=== PATIENT | male | born 1980 | race Caucasian/White ===

== ENCOUNTER 2017-01-17 18:56 | Emergency (ER) | payer BC, OTHER ==
[2017-01-17] MEDS ORDERED: ONDANSETRON 4 MG/2 ML VIAL IVP STA (19:04)
--- NOTE | 2017-01-17 19:24 | ED ---
Overdose HPI - General Chief Complaint: Overdose Stated Complaint: Overdose Time Seen by Provider: 01/17/17 19:00 Source: patient, EMS, RN notes reviewed Mode of arrival: EMS Limitations: no limitations - History of Present Illness Initial Comments: 36-year-old male presents to the emergency department via EMS with complaint of overdose. Patient states he relapsed on heroin today. Patient states that he injected his left forearm. Patient was found's in his truck. Patient was given 2 of Narcan IV. Patient states he just feels nauseated this time. Patient denies any suicidal or homicidal ideations. Denies any fever or chills. Denies any chest or shortness of breath. - Related Data Home Medications Medication Instructions Recorded Confirmed No Known Home Medications [No 01/17/17 01/17/17 Known Home Medications] Allergies Allergy/AdvReac Type Severity Reaction Status Date / Time No Known Allergies Allergy Verified 01/17/17 19:44 Review of Systems ROS Statement: Those systems with pertinent positive or pertinent negative responses have been documented in the HPI. ROS Other: All systems not noted in ROS Statement are negative. Past Medical History Additional Past Medical History / Comment(s): kidney stones History of Any Multi-Drug Resistant Organisms: None Reported Past Surgical History: No Surgical Hx Reported Past Psychological History: No Psychological Hx Reported Smoking Status: Current every day smoker Past Alcohol Use History: Occasional Past Drug Use History: Heroin General Exam Limitations: no limitations General appearance: alert, in no apparent distress Head exam: Present: atraumatic, normocephalic, normal inspection Eye exam: Present: normal appearance, PERRL, EOMI. Absent: scleral icterus, conjunctival injection, periorbital swelling ENT exam: Present: normal exam, normal oropharynx, mucous membranes moist Neck exam: Present: normal inspection. Absent: tenderness, meningismus, lymphadenopathy Respiratory exam: Present: normal lung sounds bilaterally. Absent: respiratory distress, wheezes, rales, rhonchi, stridor Cardiovascular Exam: Present: normal rhythm, tachycardia, normal heart sounds. Absent: systolic murmur, diastolic murmur, rubs, gallop, clicks GI/Abdominal exam: Present: soft, normal bowel sounds. Absent: distended, tenderness, guarding, rebound, rigid Back exam: Present: normal inspection Psychiatric exam: Present: normal affect, normal mood Course Vital Signs 01/17/17 01/17/17 18:57 19:03 Temperature 97.9 F Pulse Rate 108 H Respiratory 17 Rate Blood Pressure 145/90 O2 Sat by Pulse 98 Oximetry - Reevaluation(s) Reevaluation #1: 01/17/17 20:04 Patient was reevaluated. Patient received Narcan over 90 minutes ago. Patient is awake alert and 3. Patient will be discharged Medical Decision Making - Medical Decision Making 36-year-old male present emergency department for heroin overdose. Patient was given Narcan and which responded to. Patient awake and alert and orientated. Patient will be discharged Disposition Clinical Impression: Heroin overdose Disposition: HOME SELF-CARE Condition: Stable Instructions: Opioid Overdose (ED) Additional Instructions: Please return to the Emergency Department if symptoms worsen or any other concerns. Referrals: None,Stated [Primary Care Provider] - 1-2 days Time of Disposition: 20:05
[2017-01-17 21:07] VITALS: BP 117/68; PULSE 85; RESP 20; TEMP 98.7
== END 2017-01-17 21:07 | disposition home or self-care (01) ==
LOC: EC 18:56
DX: T40.1X1A Poisoning by heroin, accidental (unintentional), initial encounter (principal); R11.0 Nausea; F17.200 Nicotine dependence, unspecified, uncomplicated
CPT/HCPCS: 99284; 96374; J2405

== ENCOUNTER 2017-03-13 15:15 | Emergency (ER) | payer BC, OTHER ==
[2017-03-13 15:52] VITALS: RESP 18
--- NOTE | 2017-03-13 16:07 | ED ---
General Adult HPI - General Chief complaint: Extremity Injury, Lower Stated complaint: Leg Pain Time Seen by Provider: 03/13/17 15:39 Source: patient, RN notes reviewed Mode of arrival: ambulatory Limitations: no limitations - History of Present Illness Initial comments: Patient is 36-year-old male who presents emergency room today with a chief complaint of pain and some swelling to left lower extremity. He does admit that it started approximately a week ago. Denies any injury or trauma. States seems to be worse in the morning when he first gets up and as the day goes on seems to improve. He does admit that the pain is worse to the top of the left calf and behind the left knee. He denies any other complaints or symptoms. Patient denies any recent fever, chills, shortness of breath, chest pain, back pain, abdominal pain, nausea or vomiting, numbness or tingling, dysuria or hematuria, constipation or diarrhea, headaches or visual changes, or any other complaints. - Related Data Previous Rx's Medication Instructions Recorded Ibuprofen [Motrin] 600 mg PO Q6HR PRN #40 day 03/13/17 Allergies Allergy/AdvReac Type Severity Reaction Status Date / Time No Known Allergies Allergy Verified 03/13/17 15:48 Review of Systems ROS Statement: Those systems with pertinent positive or pertinent negative responses have been documented in the HPI. ROS Other: All systems not noted in ROS Statement are negative. Past Medical History Additional Past Medical History / Comment(s): kidney stones History of Any Multi-Drug Resistant Organisms: None Reported Past Surgical History: No Surgical Hx Reported Past Psychological History: No Psychological Hx Reported Smoking Status: Current every day smoker Past Alcohol Use History: Occasional Past Drug Use History: Heroin, Opiates, Prescription Drug Abuse General Exam - General Exam Comments Initial Comments: General: The patient is awake and alert, in no distress, and does not appear acutely ill. Neck: The neck is supple, there is no tenderness or JVD. Cardiovascular: There is a regular rate and rhythm. No murmur, rub or gallop is appreciated. Respiratory: Lungs are clear to auscultation, respirations are non-labored, breath sounds are equal. No wheezes, stridor, rales, or rhonchi. Musculoskeletal: Patient does have some mild swelling to left lower extremity when compared bilaterally. His local tender to the popliteal and upper calf area. Sensations are intact pulses equal bilaterally 2+. Strength 5/5 bilaterally. Neurological: A&O x 3. CN II-XII intact, There are no obvious motor or sensory deficits. Coordination appears grossly intact. Speech is normal. Skin: Skin is warm and dry and no rashes or lesions are noted. Psychiatric: Normal mood and affect. Limitations: no limitations Course Vital Signs 03/13/17 15:47 Temperature 97.9 F Pulse Rate 87 Respiratory 18 Rate Blood Pressure 123/73 O2 Sat by Pulse 98 Oximetry Medical Decision Making - Medical Decision Making Ultrasound negative for any evidence of DVT. There is no sign of infection. Patient advised most likely a pulled strength muscle. Advised follow-up with orthopedics. Advised return here to the emergency room if any symptoms increase or worsen in the meantime use ibuprofen for pain. Patient states her stated and is in agreement. Disposition Clinical Impression: Left leg pain Disposition: HOME SELF-CARE Condition: Good Instructions: Knee Sprain (ED) Additional Instructions: Please use medication as discussed. Please follow-up with orthopedic/family doctor in the next 2 days of symptoms have not improved. Please return to emergency room if the symptoms increase or worsen or for any other concerns. Prescriptions: Ibuprofen [Motrin] 600 mg PO Q6HR PRN #40 day PRN Reason: Pain Referrals: None,Stated [Primary Care Provider] - 1-2 days Artur Fry MD [Medical Doctor] - 1-2 days Time of Disposition: 17:15
--- NOTE | 2017-03-13 16:59 | US ---
EXAMINATION TYPE: US venous doppler duplex LE LT DATE OF EXAM: 03/13/2017 4:46 PM COMPARISON: NONE CLINICAL HISTORY: 36-year-old male Pain. SIDE PERFORMED: Left TECHNIQUE: The lower extremity deep venous system is examined utilizing real time linear array sonog bibiana with graded compression, doppler sonography and color-flow sonography. FINDINGS: VESSELS IMAGED: External Iliac Vein (EIV) Common Femoral Vein Deep Femoral Vein Greater Saphenous Vein * Femoral Vein Popliteal Vein Small Saphenous Vein * Proximal Calf Veins (* superficial vessels) Left Leg: Negative for DVT IMPRESSION: No evidence for DVT within the left lower extremity imaged from the groin to the upper calf.
[2017-03-13 17:17] VITALS: BP 130/75; PULSE 70; TEMP 98.7
== END 2017-03-13 17:17 | disposition home or self-care (01) ==
LOC: EC 15:15
DX: M79.605 Pain in left leg (principal); M79.89 Other specified soft tissue disorders; F17.200 Nicotine dependence, unspecified, uncomplicated
CPT/HCPCS: 99283

== ENCOUNTER 2019-11-01 09:43 | Observation (INO) | payer OTHER ==
[2019-11-01] MEDS ORDERED: ACETAMINOPHEN TAB 325 MG TAB PO PRN (11:25)
[2019-11-01] MEDS ORDERED: NALOXONE 0.4 MG/ML 1 ML VIAL IV PRN (11:25)
[2019-11-01] MEDS ORDERED: IBUPROFEN 400 MG TAB PO PRN (11:25)
[2019-11-01] MEDS ORDERED: VANCOMYCIN IV PER PHARMACY 1 EACH MISC MISCELLANE PRN (11:31)
--- NOTE | 2019-11-01 11:31 | P.PN ---
Progress Note - Text Patient's transfer from the Hospital for Foot Drop and Neurological Evaluation. Patient Doesn't Have Any Trauma, Has Weakness in the Dorsiflexion of the Left Foot along with Loss of Proprioception Loss of Pain and Temperature Sensations. Patient Did Have a Low-Grade Fever of 100.2 Because of Which Will Obtain a Blood Culture Patient Was Started on Vancomycin MRI of the Lumbar Spine Will Be Ordered to Rule Out Discitis.
--- NOTE | 2019-11-01 12:12 | XR ---
EXAMINATION TYPE: XR chest 2V DATE OF EXAM: 11/01/2019 COMPARISON: 01/03/2015 TECHNIQUE: PA and lateral views submitted. HISTORY: Cough possible pneumonia FINDINGS: The lungs are clear and there is no pneumothorax, pleural effusion, or focal pneumonia. Heart size normal with no overt failure. Biapical pleural thickening. IMPRESSION: 1. No acute process.
--- NOTE | 2019-11-01 14:38 | MR ---
EXAMINATION TYPE: MR lumbar spine wo/w con DATE OF EXAM: 11/01/2019 COMPARISON: HISTORY: Foot drop, weakness in dorsiflexion left foot with loss of proprioception, pain and temperat ure sensations R/O diskitis TECHNIQUE: Multiplanar, multisequence images of the lumbar spine were acquired utilizing 7.5 mL intravenous Gada vist gadolinium contrast. L1-L2: Normal disc appearance without desiccation. No herniation, protrusion or disc bulging. No ca nal stenosis is present. Foramina are patent bilaterally. L2-L3: No evident foraminal encroachment. Minimal posterior disc bulge causes only slight anterior ma ss effect on the thecal sac. L3-L4: Normal disc appearance without desiccation. No herniation, protrusion or disc bulging. No ca nal stenosis is present. Foramina are patent bilaterally. L4-L5: Normal disc appearance without desiccation. No herniation, protrusion or disc bulging. No ca nal stenosis is present. Foramina are patent bilaterally. L5-S1: Normal disc appearance without desiccation. No herniation, protrusion or disc bulging. No ca nal stenosis is present. Foramina are patent bilaterally. Lumbar segments are intact. No paraspinal masses are identified. Conus medullaris has a normal appe arance. Lumbar vertebral bodies show preserved height and alignment. No abnormal enhancement followin g contrast administration. Loss of disc height signal present at L2-3. IMPRESSION: Mild degenerative disc disease L2-3.
[2019-11-01 15:13] LABS: African American GFR (CKD) >90 (>60 ml/min/1.73 sqM); Non-African American GFR(CKD) >90 (>60 ml/min/1.73 sqM)
[2019-11-01] MEDS ORDERED: VANCOMYCIN 1,250 MG in SODIUM CHLORIDE 0.9% 250 ML IVPB ONE (15:30)
[2019-11-01 17:36] VITALS: RESP 16
[2019-11-01] MEDS: VANCOMYCIN 1,250 MG in SODIUM CHLORIDE 0.9% 250 ML IVPB SCH (23:07)
[2019-11-02 07:19] LABS: Basophils % (A) 0 %; Eosinophils % (A) 0 %; HCT 37.9 % (39.0-53.0); Lymphocytes # (A) 1.4 k/uL (1.0-4.8); Lymphocytes % (A) 25 %; MCH 30.8 pg (25.0-35.0); MCHC 34.2 g/dL (31.0-37.0); MCV 90.1 fL (80.0-100.0); Mean Platelet Volume 7.8; Monocytes # (A) 0.4 k/uL (0-1.0); Monocytes % (A) 7 %; Neutrophils # (A) 3.7 k/uL (1.3-7.7); Neutrophils % (A) 66 %; Platelet Count 199 k/uL (150-450); RBC 4.21 m/uL (4.30-5.90); RDW 12.2 % (11.5-15.5); WBC 5.6 k/uL (3.8-10.6)
[2019-11-02 07:41] LABS: ALT 39 U/L (4-49); AST 114 U/L (17-59); African American GFR (CKD) >90 (>60 ml/min/1.73 sqM); Albumin 3.4 g/dL (3.5-5.0); Alkaline Phosphatase 51 U/L (38-126); Anion Gap 7 mmol/L; Blood Urea Nitrogen 9 mg/dL (9-20); Calcium 8.3 mg/dL (8.4-10.2); Carbon Dioxide 23 mmol/L (22-30); Chloride 107 mmol/L (98-107); Glucose 78 mg/dL (74-99); Non-African American GFR(CKD) >90 (>60 ml/min/1.73 sqM); Potassium 3.9 mmol/L (3.5-5.1); Sodium 137 mmol/L (137-145); Total Bilirubin 0.6 mg/dL (0.2-1.3); Total Protein 6.1 g/dL (6.3-8.2)
[2019-11-02 08:31] VITALS: BP 106/72; PULSE 95; TEMP 98.2
[2019-11-02] MEDS: VANCOMYCIN 1,250 MG in SODIUM CHLORIDE 0.9% 250 ML IVPB SCH (08:31)
--- NOTE | 2019-11-02 12:44 | CONS ---
CONSULTATION DATE OF DICTATION: 11/02/2019. HISTORY OF PRESENT ILLNESS: Mukund Cantu who is a 39-year-old right-handed white male who presented to [facility] as a transfer from an outside hospital for evaluation of an acute left footdrop, which was present upon waking and low-grade temperature at the outside facility of 100.2. The patient states that yesterday morning he fell asleep on the couch and woke up after 3-4 hours with his left foot feeling numb and inability to dorsiflex the left foot. The symptoms were not present prior to the patient falling asleep. He states the numbness affected the entire left foot and posterior lateral calf and was able to plantar flex the foot. The right lower extremity was asymptomatic and he has never had similar symptoms in the past. He had no weakness or numbness involving the left upper extremity or left side of the face. This morning, the patient has noted significant improvement in the symptoms, stating he is now able to dorsiflex the foot and the numbness has improved, although not entirely back to baseline. When the symptoms developed, the patient had no associated back pain or left lower extremity discomfort. He denied recent trauma. He had a low-grade temperature at the outside emergency room, although states at home he had no fever, chills, or sweats and has been afebrile since being transferred to this facility. He has no previous history of stroke or seizure. Due to the patient's previous history of IV drug abuse, concern was raised regarding diskitis or epidural abscess and as a result, MRI of the lumbar spine with and without contrast which was completed, which was unrevealing. ALLERGIES: No known drug allergies. HOME MEDICATIONS: None. The patient states he does occasionally use over the counter Kratom. PAST MEDICAL HISTORY: Hepatitis C, opiate/IV heroin abuse and tobacco abuse. PAST SURGICAL HISTORY: Denies. SOCIAL HISTORY: The patient smokes a half pack per day and smoked over the past 20 years. He occasionally consumes alcohol. He smokes marijuana occasionally and has a previous history of opiate and IV heroin abuse, although states he has not used heroin over the last 6 months. He has been through a detox program. He denies sexually transmitted diseases. He is single with 2 children and lives in apartment by himself. He is not been using any assistive devices to ambulate at home. 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 FAMILY HISTORY: Patient's parents are alive. Mother is in good health and father has had a history of coronary artery disease and pacemaker placed. There is no family history of neuropathy, myopathy, or other neurologic/neuromuscular disorders. REVIEW OF SYSTEMS: Fourteen systems are reviewed and no additional points identified. The review of systems documented in history and physical.. PHYSICAL EXAM: Upon arrival to the patient's room, he was lying in bed, receptive to the examiner. Affect is normal. He is an accurate historian. Appears of stated age. He is of thin build. VITAL SIGNS: Blood pressure is 106/72 with a pulse of 95, respiratory rate 16, temperature is 98.2, weight is 76 kg on a 6 foot 1 inch frame. SKIN/EXTREMITIES: Normal. Straight leg raising is negative. HEAD, NECK: No tenderness or signs of trauma. Neck is supple without meningeal signs. Arteries are nontender and without bruits. HEART: Regular rhythm, higher cortical function. MENTAL STATUS: Patient was alert, oriented to time, place, and person. He was able to name, repeat and read. There was no right to left disorientation, finger-nose extinction to double simultaneous stimulation or dysarthria. Pharynx is well. Pupils are equal and reactive to light symmetrically. No afferent pupillary defect. Visual walter are intact to confrontation. No ptosis/extraocular movements full. No nystagmus. Pinprick to light touch intact in all 3 divisions. Motor 5 intact. No facial asymmetry or weakness. Acuity intact to finger rub. Palate gabrielle in the midline. Trapezius strength intact. Tongue protruded midline without fasciculation or atrophy. Motor examination, there is no pronator drift. Normal bulk and tone are normal, which was closed with no involuntary movements noted. Strength is 5/5 involving the bilateral upper and right lower extremities. The left lower extremity strength is listed on a 0-5 MRC scale, right side listed first. Iliopsoas 5, quadriceps 5, hamstrings 5, ankle dorsiflexors 5- , ankle plantar flexors 5, invertors 5, evertors 5. SENSORY: Patient reports diminution to pinprick and light touch predominantly over the top of the left foot as compared to the right. The remainder of the upper/lower extremities were symmetric. There is no is no asymmetry across the chest or sensory level. Reflexes right side listed first biceps 1, 1/. Brachioradials 1, 1, chest of 1, 1, patella 2, 2, ankle 2, 1. Plantar responses flexor bilaterally. Cobb's is absent. Coordination pkhkab-[id number], iikd-dj-[id number] movements are intact. Rapid movements are symmetric with finger and foot tapping. Gait and station. The patient was able rise from a seated position without difficulty. He ambulated with a mildly broad-based gait with equal arm swing. He was able to heel-toe and tandem walk. Romberg is negative. At the bedside, I had the patient hold on to a nearby counter and perform ankle plantar flexion with each foot individually and on 5 repetitions did this without reduction in amplitude on either side. DIAGNOSTIC TESTING: Patient had an MRI of lumbar spine completed with without contrast, which demonstrated mild degenerative disc disease at the L2-3 level, but was otherwise unrevealing, in particular, there was no evidence of significant disc herniation, canal stenosis and the neural foramen were patent bilaterally. No abnormal enhancement was seen. LAB WORK: Demonstrates a white blood count of 5.6, hemoglobin of 13.0, platelet count 199. Sodium 137 and potassium 3.9, BUN 9 with a creatinine of 0.68, calcium 8.3, ALT 39, AST 114. IMPRESSION: 1. Left foot drop noted upon awakening yesterday morning, likely secondary to a left peroneal mononeuropathy across the fibular segment as the patient had fallen asleep on his couch. This has significantly improved within 1 day. The patient currently has near-complete left ankle dorsiflexion strength and is able to heel walk on the left. 2. Mildly reduced left Achilles reflex, it is unclear if this is old or new, although patient has no weakness in the left S1 distribution, in particular, is able to ankle plantar flex without difficulty. 3. Low-grade fever at an outside facility. The patient has been afebrile during this hospitalization, denies chills or sweats, has no white blood cell count elevation, and MRI of the lumbar spine was negative for enhancing lesions. 4. History of hepatitis C, tobacco abuse, and opiate/heroin abuse. RECOMMENDATION: 1. I reassured the patient his neurologic examination is well maintained. 2. Recommend avoiding leg crossing. 3. MRI of the lumbar spine with and without contrast was unrevealing, in particular, no enhancing lesions were identified nor was there significant disk herniation, canal stenosis or neural foraminal narrowing. 4. Would pursue an EMG on an outpatient basis if the symptoms persist. 5. Please feel free to contact me if there are further questions from a neurologic standpoint. MMODL / IJN: [id number] / MTDD
--- NOTE | 2019-11-02 12:46 | P.HPIM ---
History of Present Illness 39-year-old pleasant male left presented to [facility] because of weakness in the left leg patient has a weakness in the dorsiflexion of the left foot. No other weakness patient has loss of sensation of all sensations as well as proprioception. Patient reflexes in the left knee is within normal limits and the 2/5. Patient had a low-grade fever in the other hospital with only 1 episode of 100.2 because of which there is a concern of discitis. Patient was transferred here for evaluation by neurology and MRI. Patient already had MRI of the lumbar spine which is transient discitis. Patient had only 1 episode of fever doesn't have any leukocytosis no other signs or symptoms of sepsis. Patient had mildly related liver enzymes secondary to chronic hep C. Since patient had a low-grade fever 1 episode without any evidence of any sepsis patient will not require antibiotics patient was evaluated by neurology and cleared for discharge. Patient probably has local nerve injury when his sleep his weakness significantly improved and patient is able to walk normally. If he can use to have weakness patient will follow with outpatient physical therapy. He continues to have weakness patient will follow with urology as an outpatient for the EMG. Patient doesn't have any evidence of, denied any trauma patient do esn't have any evidence of compartment syndrome Review of Systems REVIEW OF SYSTEMS: CONSTITUTIONAL: No fever, no malaise, no fatigue. HEENT: No recent visual problems or hearing problems. Denied any sore throat. CARDIOVASCULAR: No chest pain, orthopnea, PND, no palpitations, no syncope. PULMONARY: No shortness of breath, no cough, no hemoptysis. GASTROINTESTINAL: No diarrhea, no nausea, no vomiting, no abdominal pain. NEUROLOGICAL: As mentioned in HPI HEMATOLOGICAL: Denies any bleeding or petechiae. GENITOURINARY: Denies any burning micturition, frequency, or urgency. MUSCULOSKELETAL/RHEUMATOLOGICAL: Denies any joint pain, swelling, or any muscle pain. ENDOCRINE: Denies any polyuria or polydipsia. The rest of the 14-point review of systems is negative. Past Medical History Past Medical History: Liver Disease Additional Past Medical History / Comment(s): Hepatitis C diagnosed about 8 yrs ago, past IVDA. History of Any Multi-Drug Resistant Organisms: None Reported Past Surgical History: No Surgical Hx Reported Additional Past Surgical History / Comment(s): Bilateral myringotomy/tubes Past Anesthesia/Blood Transfusion Reactions: No Reported Reaction Smoking Status: Current every day smoker - Past Family History Mother Family Medical History: No Reported History Additional Family Medical History / Comment(s): Mother is healthy Father Family Medical History: Coronary Artery Disease (CAD) Additional Family Medical History / Comment(s): Father has had CABG/pacemaker. Medications and Allergies Home Medications Medication Instructions Recorded Confirmed Type No Known Home Medications 11/01/19 11/01/19 History Allergies Allergy/AdvReac Type Severity Reaction Status Date / Time No Known Allergies Allergy Verified 11/01/19 11:55 Physical Exam Vitals: Vital Signs Temp Pulse Resp BP Pulse Ox 11/02/19 08:00 98.2 F 95 16 106/72 99 11/02/19 04:00 98.3 F 90 16 128/73 97 11/02/19 00:00 98.5 F 78 16 119/74 97 11/01/19 20:00 98.5 F 85 16 114/72 96 11/01/19 16:00 98.4 F 80 16 112/73 99 Intake and Output 11/01/19 11/02/19 11/02/19 22:59 06:59 14:59 Intake Total 240 120 Balance 240 120 Intake: Oral 240 120 Other: # Voids 1 2 Weight 76 kg PHYSICAL EXAMINATION: GENERAL: The patient is alert and oriented x3, not in any acute distress. Well developed, well nourished. HEENT: Pupils are round and equally reacting to light. EOMI. No scleral icterus. No conjunctival pallor. Normocephalic, atraumatic. No pharyngeal erythema. No thyromegaly. CARDIOVASCULAR: S1 and S2 present. No murmurs, rubs, or gallops. PULMONARY: Chest is clear to auscultation, no wheezing or crackles. ABDOMEN: Soft, nontender, nondistended, normoactive bowel sounds. No palpable organomegaly. MUSCULOSKELETAL: No joint swelling or deformity. EXTREMITIES: No cyanosis, clubbing, or pedal edema. NEUROLOGICAL: Weakness in the left foot as mentioned above SKIN: No rashes. Results CBC & Chem 7: 11/02/19 06:31 11/02/19 06:31 Labs: Abnormal Lab Results - Last 24 Hours (Table) 11/02/19 11/02/19 Range/Units 06:31 06:31 RBC 4.21 L (4.30-5.90) m/uL Hct 37.9 L (39.0-53.0) % Calcium 8.3 L (8.4-10.2) mg/dL AST 114 H (17-59) U/L Total Protein 6.1 L (6.3-8.2) g/dL Albumin 3.4 L (3.5-5.0) g/dL Thrombosis Risk Factor Assmnt - Choose All That Apply Any of the Below Risk Factors Present?: No Other Risk Factors: No Other congenital or acquired thrombophilia - If yes, enter type in comment: No Thrombosis Risk Factor Assessment Level: Very Low Risk Assessment and Plan Plan: -Foot drop: No trauma, no evidence of compartment syndrome no more fevers no sepsis. Patient the weakness in the left foot improved patient walk is normal limits discharged today has mentioned above -Ruled out discitis and infection of the lumbar spine. -History of hepatitis C patient related to follow gastroneurology as an outpatient Patient will be referred to PCP, neurologist and gastric body as an outpatient
--- NOTE | 2019-11-02 12:46 | P.DS ---
Providers Date of admission: 11/01/19 11:21 Attending physician: Juarez Garces Consults: 11/01/19 11:27 Consult Physician Routine Consulting Provider: Artur Arredondo Reason/Comments: Foot drop Do you want consulting provider notified?: Yes Primary care physician: Stated None Hospital Course: Please refer to my HPI for further details Plan - Discharge Summary Discharge Rx Participant: No New Discharge Prescriptions: No Action No Known Home Medications Discharge Medication List No Known Home Medications 11/01/19 [History] Follow up Appointment(s)/Referral(s): Cleveland Cottrell MD [REFERRING] - 1 Week (Phone lines are busy. Please call to schedule appointment) Haile Bertrand MD [STAFF PHYSICIAN] - 1 Week (Dr. Cottrell has to refer you to this doctor) Sanket Salguero MD [STAFF PHYSICIAN] - 2 Weeks Activity/Diet/Wound Care/Special Instructions: Out patient physical therapy. Prescription given. Discharge Disposition: HOME SELF-CARE
[2019-11-03] MEDS ORDERED: VANCOMYCIN TROUGH DUE 1 EACH MISC MISCELLANE ONE (07:00)
== END 2019-11-02 13:41 | disposition home or self-care (01) ==
LOC: 3SCARD 11:21 → INTOOBSV 11:21 → UNDODISIN 11-02 13:41
PROVIDERS: ADMIT Internal Medicine; ATTEND Internal Medicine
DX: M21.372 Foot drop, left foot (principal); R50.9 Fever, unspecified; R20.0 Anesthesia of skin; M46.40 Discitis, unspecified, site unspecified; B18.2 Chronic viral hepatitis C; F11.11 Opioid abuse, in remission; F17.210 Nicotine dependence, cigarettes, uncomplicated; Z82.49 Family history of ischemic heart disease and other diseases of the circulatory system
CPT/HCPCS: 96365; 96366 ×2; 80053; 82565; 85025; 87040; 71046; 72158; G0378 ×2; G0379; J3370 ×2; A9585

== ENCOUNTER 2020-08-30 23:47 | Emergency (ER) | payer OTHER ==
[2020-08-30 23:56] VITALS: TEMP 98
[2020-08-31] MEDS ORDERED: ONDANSETRON 4 MG/2 ML VIAL IVP STA
[2020-08-31] MEDS ORDERED: SODIUM CHLORIDE 0.9% 1,000 ML IV STA
[2020-08-31] MEDS ORDERED: PANTOPRAZOLE 40 MG/10 ML VIAL IVP STA
[2020-08-31] MEDS ORDERED: LORazepam 2 MG/ML INJ IV STA
--- NOTE | 2020-08-31 00:02 | ED ---
Overdose HPI - General Chief Complaint: Overdose Stated Complaint: overdose Time Seen by Provider: 08/30/20 23:57 Source: patient, EMS, RN notes reviewed, old records reviewed Mode of arrival: EMS Limitations: no limitations - History of Present Illness Initial Comments: This is a 32-year-old male DF for evaluation patient Dese for evaluation regards to overdose. Patient unwilling to admit what medication was overdose, states he took some sort of fell was given Narcan by friends prior to arrival EMS brings patient in and what appears to be opiate withdrawal nausea vomiting elevated heart rate sweating. Patient himself is without complaint. Denies any other drugs or alcohol MD Complaint: accidental overdose -: minutes(s) Intent: unwilling to say How Overdose Was Discovered: family/friend present at time Context: Intentional Overdose: drug/ETOH problems Context: Accidental Overdose: wanted to get high Treatments Prior to Arrival: narcan - Related Data Home Medications Medication Instructions Recorded Confirmed No Known Home Medications 11/01/19 11/01/19 Allergies Allergy/AdvReac Type Severity Reaction Status Date / Time No Known Allergies Allergy Verified 11/01/19 11:55 Review of Systems ROS Statement: Those systems with pertinent positive or pertinent negative responses have been documented in the HPI. ROS Other: All systems not noted in ROS Statement are negative. Past Medical History Past Medical History: Liver Disease Additional Past Medical History / Comment(s): Hepatitis C diagnosed about 8 yrs ago, past IVDA. History of Any Multi-Drug Resistant Organisms: None Reported Past Surgical History: No Surgical Hx Reported Additional Past Surgical History / Comment(s): Bilateral myringotomy/tubes Past Anesthesia/Blood Transfusion Reactions: No Reported Reaction Past Psychological History: No Psychological Hx Reported Past Alcohol Use History: Occasional Past Drug Use History: Heroin, Marijuana, Opiates, Prescription Drug Abuse - Past Family History Mother Family Medical History: No Reported History Additional Family Medical History / Comment(s): Mother is healthy Father Family Medical History: Coronary Artery Disease (CAD) Additional Family Medical History / Comment(s): Father has had CABG/pacemaker. General Exam Limitations: no limitations General appearance: alert, in no apparent distress, anxious Head exam: Present: atraumatic, normocephalic, normal inspection Eye exam: Present: normal appearance, PERRL, EOMI. Absent: scleral icterus, conjunctival injection, periorbital swelling ENT exam: Present: normal exam, mucous membranes moist Neck exam: Present: normal inspection. Absent: tenderness, meningismus, lymphadenopathy Respiratory exam: Present: normal lung sounds bilaterally. Absent: respiratory distress, wheezes, rales, rhonchi, stridor Cardiovascular Exam: Present: normal rhythm, tachycardia, normal heart sounds. Absent: systolic murmur, diastolic murmur, rubs, gallop, clicks GI/Abdominal exam: Present: soft, normal bowel sounds. Absent: distended, tenderness, guarding, rebound, rigid Extremities exam: Present: normal inspection, full ROM, normal capillary refill. Absent: tenderness, pedal edema, joint swelling, calf tenderness Back exam: Present: normal inspection Neurological exam: Present: alert, oriented X3, CN II-XII intact Psychiatric exam: Present: normal affect, normal mood Skin exam: Present: warm, dry, intact, normal color. Absent: rash Course Vital Signs 08/30/20 08/31/20 23:54 00:56 Temperature 98 F Pulse Rate 111 H 87 Respiratory 22 18 Rate Blood Pressure 135/90 97/60 O2 Sat by Pulse 95 94 L Oximetry - Reevaluation(s) Reevaluation #1: Medical record is reviewed Patient has significant symptoms improving here in the ER Spoke patient regarding findings and results questions answered Patient feels good for discharge home Medical Decision Making - Medical Decision Making 40 male with accidental overdose likely opiate, heroin. Patient had resolution of symptoms with Narcan, remains currently feeling longer for discharge home - Lab Data Result diagrams: 08/31/20 00:15 Lab Results 08/31/20 08/31/20 Range/Units 00:15 00:15 WBC 8.6 (3.8-10.6) k/uL RBC 4.55 (4.30-5.90) m/uL Hgb 14.5 (13.0-17.5) gm/dL Hct 41.1 (39.0-53.0) % MCV 90.3 (80.0-100.0) fL MCH 32.0 (25.0-35.0) pg MCHC 35.4 (31.0-37.0) g/dL RDW 12.8 (11.5-15.5) % Plt Count 188 (150-450) k/uL MPV 8.8 Neutrophils % 83 % Lymphocytes % 10 % Monocytes % 4 % Eosinophils % 1 % Basophils % 0 % Neutrophils # 7.1 (1.3-7.7) k/uL Lymphocytes # 0.8 L (1.0-4.8) k/uL Monocytes # 0.3 (0-1.0) k/uL Eosinophils # 0.1 (0-0.7) k/uL Basophils # 0.0 (0-0.2) k/uL Ammonia 29 (<30) umol/L - EKG Data -: EKG Interpreted by Me ( EKG shows sinus tachycardia 106 VA 138 QRS 96 QTc 491) Disposition Clinical Impression: Poisoning by opiates and related narcotics, other, Accidental drug overdose, Drug overdose Disposition: HOME SELF-CARE Condition: Fair Instructions (If sedation given, give patient instructions): Adult Overdose (ED) Is patient prescribed a controlled substance at d/c from ED?: No Referrals: None,Stated [Primary Care Provider] - 1-2 days
[2020-08-31 00:56] LABS: Basophils % (A) 0 %; Eosinophils # (A) 0.1 k/uL (0-0.7); Eosinophils % (A) 1 %; HCT 41.1 % (39.0-53.0); HGB 14.5 gm/dL (13.0-17.5); Lymphocytes # (A) 0.8 k/uL (1.0-4.8); Lymphocytes % (A) 10 %; MCHC 35.4 g/dL (31.0-37.0); MCV 90.3 fL (80.0-100.0); Mean Platelet Volume 8.8; Monocytes # (A) 0.3 k/uL (0-1.0); Monocytes % (A) 4 %; Neutrophils # (A) 7.1 k/uL (1.3-7.7); Neutrophils % (A) 83 %; Platelet Count 188 k/uL (150-450); RBC 4.55 m/uL (4.30-5.90); RDW 12.8 % (11.5-15.5); WBC 8.6 k/uL (3.8-10.6)
[2020-08-31 00:59] VITALS: BP 97/60; PULSE 87; RESP 18
== END 2020-08-31 01:29 | disposition home or self-care (01) ==
LOC: EC 23:47
DX: T40.601A Poisoning by unspecified narcotics, accidental (unintentional), initial encounter (principal); R00.0 Tachycardia, unspecified; R11.2 Nausea with vomiting, unspecified
CPT/HCPCS: 36415; 93005; 82140; 85025; 99284; 96374; 96375 ×2; 96361; J2060; J2405; C9113